=== PATIENT | female | born 1990 | race Caucasian/White ===

== ENCOUNTER 2018-06-17 17:16 | Emergency (ER) | payer MEDICAID ==
[~2018-06-17] VITALS: Ht 177.8 cm; Wt 84.0 kg
[2018-06-17 17:26] VITALS: BP 150/84
--- NOTE | 2018-06-17 17:31 | NUR ---
PT COMING IN WITH LAW ENFORCEMENT FOR SI, PT PLACED ON L2K FOR STATING WILL OD ON PILLS WHICH SHE HAS ACCESS TO. RECENTLY LOST CHILD IN MARCH. KIARRA SW TO BEDSIDE TO TALK WITH PT. ALL BELONGINGS INCLUDING CLOTHING, PURSE AND PHONE PLACED IN LOCKER. PT UNDERSTANDS PROTOCOL AND IS COOPERATIVE AT THIS TIME. AWAITING SITTER, LABS AND TELEPSYCH CONSULT
[2018-06-17] MEDS ORDERED: LORazepam 1MG TABLET ONE (17:45)
--- NOTE | 2018-06-17 17:55 | NUR ---
PT MEDICATED PER MAY. UA COLLECTED AND WALKED DOWN TO LAB. LAB AT BEDSIDE FOR COLLECTION
[2018-06-17] MEDS ORDERED: LORazepam 1MG TABLET PO ONE (18:00)
[2018-06-17 18:09] LABS: BASOPHILS # (AUTO) 0.07 x10^3/uL (0-0.1); BASOPHILS % (AUTO) 1 % (0-1); EOSINOPHILS # (AUTO) 0.18 x10^3/uL (0-0.4); EOSINOPHILS % (AUTO) 2 % (1-7); LYMPHOCYTES # (AUTO) 2.03 x10^3/uL (1-3.4); LYMPHOCYTES % (AUTO) 20 % (22-44); MD NO; MEAN CORPUSCULAR HEMOGLOBIN 24.7 pg (27.0-34.8); MEAN CORPUSCULAR HGB CONC 32.7 g/dL (32.4-35.8); MEAN CORPUSCULAR VOLUME 75.6 fL (80-100); MEAN PLATELET VOLUME 8.6 fL (7.4-10.4); MONOCYTES # (AUTO) 0.51 x10^3/uL (0.2-0.8); MONOCYTES % (AUTO) 5 % (2-9); NEUTROPHILS # (AUTO) 7.59 x10^3/uL (1.8-6.8); NEUTROPHILS % (AUTO) 73 % (42-75); PLATELET COUNT 385 x10^3/uL (130-400); RED BLOOD COUNT 5.75 x10^6/uL (3.82-5.3); RED CELL DISTRIBUTION WIDTH 14.5 % (9.6-15.2)
[2018-06-17 18:12] LABS: HCG UR SG 1.017 (1.003-1.030); MICROSCOPIC NOT IND
[2018-06-17 18:15] LABS: ALANINE AMINOTRANSFERASE 17 U/L (12-78); ANION GAP 5 mmol/L (5-15); CALCIUM 9.2 mg/dL (8.5-10.1); CHLORIDE 108 mmol/L (98-107); SALICYLATE LEVEL 2.1 mg/dL (2.8-20.0)
[2018-06-17 18:18] LABS: CULTURE INDICATED? NO
[2018-06-17 18:18] LABS: ALKALINE PHOSPHATASE 47 U/L (45-117); BILIRUBIN,TOTAL 0.5 mg/dL (0.2-1.0); TOTAL PROTEIN 7.9 g/dL (6.4-8.2)
[2018-06-17 18:20] LABS: ACETAMINOPHEN < 2 mcg/mL (10-30)
--- NOTE | 2018-06-17 18:30 | NUR ---
PT SLEEPING IN BED, NADN, RR EVEN AND UNLABORED. SITTER IN [place] FOR CONTINUOUS MONITORING. AWAITING TELEPSYCH CONSULT
[2018-06-17 19:45] LABS: AMPHETAMINE SCREEN, URINE Negative (Negative); BARBITURATE SCREEN, URINE Negative (Negative); BENZODIAZEPINE SCREEN, URINE Negative (Negative); CANNABINOID SCREEN, URINE Positive (Negative); COCAINE SCREEN, URINE Negative (Negative); METHADONE SCREEN, URINE Negative (Negative); OPIATE SCREEN, URINE Negative (Negative)
--- NOTE | 2018-06-17 19:55 | NUR ---
REPORT GIVEN TO SOC, PT CURRENTLY TALKING TO TELEPSYCH
--- NOTE | 2018-06-17 21:04 | NUR ---
ADDITIONAL LAB ORDERS RECIEVED. PT RESTING IN ROOM WITH SITTER IN [place] FOR CONTINUOUS MONITORING.
--- NOTE | 2018-06-17 21:16 | NUR ---
REPORT FROM SOC PT IS TO BE PLACED ON A L2K FOR INPATIENT CARE.
--- NOTE | 2018-06-17 21:29 | NUR ---
PT GIVEN FOOD FROM [employer]. ALSO REPORTING BANSAL FROM MD DARYN TO BE UPDATED, SITTER IN [place] FOR CONTINUOUS MONITORING.
[2018-06-17] MEDS ORDERED: ACETAMINOPHEN 325 MG TABLET ONE (21:51)
--- NOTE | 2018-06-17 21:56 | NUR ---
VERBAL ORDER RECIEVED FROM [facility] FOR 650MG PO TYLENOL FOR PT BANSAL PAIN. [facility] AT BEDSIDE FOR ADMIT ASSESSMENT
[2018-06-17] MEDS ORDERED: LITHIUM (21:59)
[2018-06-17] MEDS ORDERED: ACETAMINOPHEN 325 MG TABLET PO ONE (22:00)
--- NOTE | 2018-06-17 22:09 | NUR ---
MAITE AT [facility] VERBALLY REFUSED PT.
--- NOTE | 2018-06-17 22:54 | NUR ---
REPORT GIVEN TO ENELA SAUCEDO
[2018-06-17] MEDS ORDERED: ONDANSETRON ODT 4 MG PO PRN (23:00)
[2018-06-17] MEDS ORDERED: ACETAMINOPHEN 325 MG TABLET PO PRN (23:00)
[2018-06-17] MEDS ORDERED: OLANZAPINE 5 MG TABLET PO PRN (23:00)
[2018-06-17] MEDS ORDERED: LORazepam 1MG TABLET PO PRN (23:00)
[2018-06-17] MEDS ORDERED: DOCUSATE 100 MG CAPSULE PO PRN (23:00)
[2018-06-17] MEDS ORDERED: IBUPROFEN 600 MG TABLET PO PRN (23:00)
[2018-06-17] MEDS ORDERED: LITHIUM CARBONATE 300 MG CAPSULE PO SCH (23:00)
--- NOTE | 2018-06-17 23:09 | NUR ---
REPORT TO LEWIS WESTON AT [facility]
[2018-06-17 23:13] LABS: FREE T4 (FREE THYROXINE) 0.96 ng/dL (0.76-1.46); THYROID STIMULATING HORMONE 0.053 mIU/L (0.358-3.740)
--- NOTE | 2018-06-17 23:15 | NUR ---
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 PT STATE THAT CAR IS PARKED INFRONT OF THE [employer] ON [address] IN [place]. PT REPORTS KEYS ARE WITH PERSONAL BELONGINGS.
--- NOTE | 2018-06-18 00:42 | NUR ---
PT IN HALLWAY ARGUING WITH RN REGARDING HOLD. DESPITE EDUCATION REGARDING SAFETY MEASURES AND PURPOSE OF HOLD, PT IRATE. PT STATES "YOU CAN'T HOLD ME HERE! TO WHICH RN REPLIED, "WE CAN, YOU ARE ON A LEGAL HOLD AND WE ARE BOUND BY LAW TO SUPERVISE YOUR SAFETY". AT WHICH POINT PT PROCEDED TO RUN DOWN HALLWAY WITH RN RUNNING BEHIND HER. PT RAN OUT AMBULANCE BAY. SUP/TECH/RN UNABLE TO DETAIN PT. [facility] DISPATCH CALLED, FULL PHYSICAL REPORT GIVEN. KATY ARRIVED TO TRANSPORT PT TO [facility]. TRANSPORT CANCELLED AT THIS TIME.
== END 2018-06-18 02:23 | disposition left against medical advice (07) ==
LOC: ED 18:23 → EDIP 21:23 → INTOOBSV 21:23 → UNDOADMOB 21:23 → ED 06-18 02:23
DX: F31.89 Other bipolar disorder (principal); F41.1 Generalized anxiety disorder; K21.9 Gastro-esophageal reflux disease without esophagitis
CPT/HCPCS: 36415; 80053; 80178; 80307; 80329; 81003; 81025; 84439; 84443; 85025; 99284; G0480

== ENCOUNTER 2018-10-30 10:16 | Emergency (ER) | payer MEDICAID ==
[~2018-10-30] VITALS: Ht 177.8 cm; Wt 94.6 kg
[2018-10-30 10:31] VITALS: BP 127/82
== END 2018-10-30 11:13 | disposition home or self-care (01) ==
LOC: ED 11:08
DX: L03.115 Cellulitis of right lower limb (principal); L03.116 Cellulitis of left lower limb; B35.3 Tinea pedis; K21.9 Gastro-esophageal reflux disease without esophagitis; Z87.891 Personal history of nicotine dependence; Z88.0 Allergy status to penicillin
CPT/HCPCS: 99283; Q0177